=== PATIENT | male | born 1955 | race Caucasian/White ===

== ENCOUNTER 2022-01-08 09:00 | Day surgery (SDC) | payer MEDICARE, SELFPAY ==
[2022-01-08] VITALS (14 sets, daily range): BP systolic 120–144; BP diastolic 68–86; PULSE 45–63; RESP 14–16; TEMP 36.2–36.7; O2SAT 93–100; BMI 35.5
[2022-01-08] MEDS: LACTATED RINGERS 1000 ML 1,000 ML 100 ML IV (09:30)
[2022-01-08] MEDS: CEFAZOLIN 1 GM inj IVP (11:00)
--- NOTE | 2022-01-08 11:27 | SUR.OPER ---
Patient did void prior to transport back to OR. Patient was transfered via strecher to OR4. Patient was assisted to transfer to the OR bed. Patient was then covered with warm blankets x 2.
[2022-01-08] MEDS: BUPIVACAINE 0.5% 30 ML INJECTION (11:50)
--- NOTE | 2022-01-08 12:01 | PM.GSPRC ---
Operative Note Date of procedure: 01/08/22 Type of Procedure: Laparoscopic cholecystectomy Procedure Description: After discussing the risks and benefits of the procedure, the patient signed informed consent.? The operative site was marked and the patient was brought to the operating room and placed on the operating table in supine position.? Care was taken to pad the patient's pressure points.?? The patient was then intubated by anesthesia.?? The operative site was then prepped and draped in the usual sterile fashion.? A time-out was then performed. Entrance to the abdomen was gained via a 5 mm Visiport in the left upper quadrant. The abdomen was insufflated and briefly surveyed for signs of injury. There was none. 11 mm umbilical port was placed as well as 2 working ports along the right costal margin. Patient was then placed in reverse Trendelenburg position with the right side up. The gallbladder fundus was grasped and retracted cephalad. The infundibulum was grasped. A combination of hook cautery and blunt dissection was used to carefully dissect out the cystic duct and artery until they could clearly be seen entering the gallbladder without any intervening structures. The gallbladder was dissected off the cystic plate to achieve the critical view. Once this was achieved the cystic duct and artery were each clipped with 2 clips proximally and 1 clip distally and transected with the scissors. The gallbladder was then taken off of the liver bed. And removed from the abdomen using an Endo-Catch bag. The gallbladder bed was surveyed for hemostasis. A small amount of bile which had spilled was suctioned from the abdomen. The umbilical port fascia was closed with 0 Vicryl suture via a Manolo-Yolanda. The ports were then removed under direct vision. The skin was closed with absorbable subcuticular suture. Instrument sponge and needle counts were correct at the end of the case. Sterile dressings were then applied. ? The patient was then woken and transported to the recovery area in stable condition. ? The patient tolerated the procedure well. Findings: Normal gallbladder. Anesthesia: GETA Surgeon: Berta Carreon MD Estimated blood loss (mL): 5 Condition: stable Disposition: same day
--- NOTE | 2022-01-08 12:09 | W.ANESCHARGE ---
Anesthesia Charges Start Date/Time Anesthesia Start Date: 01/08/22 Anesthesia Start Time: 10:50 Stop Date/Time Anesthesia Stop Date: 01/08/22 Anesthesia Stop Time: 12:11 Summary Emergency: No
--- NOTE | 2022-01-08 12:14 | W.ANESCHARGE ---
Anesthesia Charges Start Date/Time Anesthesia Start Date: 01/08/22 Anesthesia Start Time: 10:50 Stop Date/Time Anesthesia Stop Date: 01/08/22 Anesthesia Stop Time: 12:11 Summary Emergency: No
[2022-01-08] MEDS: fentaNYL 100 MCG/2 ML inj 50 MCG IVP (12:28)
[2022-01-08] MEDS: OXYCODONE 5 MG TABLET PO (13:52)
== END 2022-01-08 14:20 | disposition home or self-care (01) ==
PROVIDERS: PCP Family Medicine; Visit Provider Surgery
PROC: 0FT44ZZ Resection of Gallbladder, Percutaneous Endoscopic Approach (ICD-10-PCS; CPT 47562; principal; 2022-01-08 10:30)
DX: K82.4 Cholesterolosis of gallbladder (principal); R10.11 Right upper quadrant pain
CPT/HCPCS: 47562; 00790; 88304; A9270; J0330; J0690; J1100; J2250; J2405; J2704; J2710; J3010; J3490; J7120

== ENCOUNTER 2023-07-08 14:39 | Emergency (ER) | payer MEDICARE, SELFPAY ==
[2023-07-08 14:46] VITALS: BP 136/73; PULSE 71; RESP 16; TEMP 36.9; O2SAT 96; BMI 33.2
--- NOTE | 2023-07-08 15:15 | ED.GENADULT ---
HPI - General Adult General Date Seen: 07/08/23 Chief complaint: Extremity Pain/Injury, Upper Stated complaint: R arm pain, shallow breathing Time Seen by Provider: 07/08/23 14:45 History of Present Illness HPI narrative: This is a pleasant 67-year-old gentleman accompanied to the ER today by his . They were sent here by the [facility] phone triage nurse. He had called the triage nurse today desiring an appointment in the clinic to checkup because he has been having trouble with a trigger finished finger affecting his right hand 4th digit for the past 3 or 4 months. He also has been having some pain from his right shoulder down to his right elbow for the past 3 or 4 months. 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 Hearing these complaints of shortness of breath and pain radiating down his arm the nurse thought he might be having an acute coronary syndrome, so made him come to the ER. However he said his arm and shoulder pain of actually been present for months and are not really exertional. There more triggered by the wrong movements of his hand and finger and shoulder. He also says that his shortness of breath has been present for many years of his life and has not changed lately. There is no acute change or decompensation in his breathing. No chest pain. No palpitations. His shortness of breath has been present for many years. He said he said he was born with a partially developed lung and also has a history of asthma triggered by environmental allergies and some perfumes. Shortness of breath has not been changing lately or recently or this week or today. It has been a chronic problem. It is not changed lately. No new shortness of breath. No cough. No chest pain. No swelling in his legs. No other new symptoms. Related Data Home Medications Medication Instructions Recorded Confirmed acetaminophen 650 mg 650 mg PO Q12H PRN 01/07/22 01/07/22 tablet,extended release (Arthritis Pain Relief (acetaminophen) ER) aspirin 81 mg capsule 81 mg PO DAILY 01/07/22 07/08/23 atorvastatin 20 mg tablet 20 mg PO QHS 01/07/22 07/08/23 finasteride 5 mg tablet 5 mg PO DAILY 01/07/22 07/08/23 polyethylene glycol 3350 17 17 g PO DAILY 01/07/22 01/07/22 gram/dose oral powder (Miralax) tamsulosin 0.4 mg capsule (Flomax) 0.4 mg PO DAILY 01/07/22 07/08/23 lisinopril 10 mg tablet mg PO 07/08/23 Previous Rx's Medication Instructions Recorded oxycodone 5 mg tablet 5 mg PO Q6H PRN pain #10 tabs 01/08/22 sennosides 8.6 mg capsule (senna) 8.6 mg PO DAILY PRN constipation 01/08/22 #90 caps Allergies Allergy/AdvReac Type Severity Reaction Status Date / Time No Known Drug Allergies Allergy Verified 01/08/22 08:04 [facility] Medical History (Updated 07/08/23 @ 15:33 by Greg Serrato MD) Anxiety ?F41.9 - Anxiety disorder, unspecified (ICD-10) Sensorineural hearing loss ?H90.5 - Unspecified sensorineural hearing loss (ICD-10) Category 5 blindness of both eyes ?H54.0X55 - Blindness right eye category 5, blindness left eye category 5 (ICD-10) Surgical History (Updated 01/07/22 @ 12:13 by Kenna Contreras RN) S/P rotator cuff repair ?Z98.890 - Other specified postprocedural states (ICD-10) Status post ORIF of fracture of ankle ?Z98.890 - Other specified postprocedural states (ICD-10) ?Z87.81 - Personal history of (healed) traumatic fracture (ICD-10) Social History Smoking Status: Never smoker How often do you have a drink containing alcohol: never How often do you have six or more drinks on one occasion: Never AUDIT-C Alcohol total score: 0 Non-prescribed substance use: denies use Exam Narrative: Exam Narrative: Constitutional: Appears well-developed and well-nourished. Alert. Conversant. Non toxic. HENT: Head: Atraumatic. Nose: Nose normal. Mouth/Throat: Oral mucosa is clear and moist. no trismus. Eyes: Conjunctivae normal. EOM normal. does have chronic vision loss from previous injury. No scleral icterus. Neck: Normal range of motion. Neck supple. No tracheal deviation present. Cardiovascular: Normal rate, regular rhythm. No gallop. No friction rub. No murmur heard. Symmetric radial artery pulses Pulmonary/Chest: Effort normal. No stridor. No respiratory distress. No wheezes. No rales. No rhonchi . No tenderness. Musculoskeletal: RUE: Normal range of motion in his shoulder, elbow, wrist, hand and digits. He does not have any active catching of his trigger finger at this time. No tenderness over the flexor tendon of the 4th digit. No obvious swelling or nodularity. Forearm and wrist and elbow are normal. Biceps and triceps are nontender. He is endorsing that when his shoulder pain hurts it flares across the front of his shoulder from the deltoid into the biceps tendon. No focal tenderness there. No erythema of the shoulder. No joint swelling. He has normal active range of motion the shoulder right now. No clear weakness of the subscapularis, supraspinatus, or infraspinatus muscles of her rotator cuff. Normal 5/5 strength in the biceps, triceps, deltoid, wrist extensors, wrist flexors, and intrinsic muscles of the hands. . No tenderness. No deformity LUE: Normal range of motion. No tenderness. No deformity RLE: Normal range of motion. No edema. No tenderness. No deformity LLE: Normal range of motion. No edema. No tenderness. No deformity Lymph: No cervical adenopathy. Neurological: Alert and oriented to person, place, and time. Normal strength. CN II-VII intact. No sensory deficit. GCS eye subscore is 4. GCS verbal subscore is 5. GCS motor subscore is 6. Normal coordination. no focal weakness or numbness to suggest cervical radiculopathy. Skin: Skin is warm and dry. No rash noted. No pallor. Normal capillary refill. Psychiatric: Normal mood. Normal affect. Const: Vital Signs, click to edit/add: Vital Signs - 24 hr 07/08/23 14:46 Temperature 98.5 F Pulse Rate [Pulse Oximeter] 71 Respiratory Rate 16 Blood Pressure [Le ft Upper Arm] 136/73 Pulse Oximetry 96 Oxygen Delivery Me thod Room Air Course Vital Signs Vital signs: Initial Vital Signs Temperature 98.5 F 07/08/23 14:46 Temperature Source Temporal Artery Scan 07/08/23 14:46 Pulse Rate 71 07/08/23 14:46 Respiratory Rate 16 07/08/23 14:46 Blood Pressure 136/73 07/08/23 14:46 Blood Pressure Mean 94 07/08/23 14:46 Blood Pressure Position Supine 07/08/23 14:46 Pulse Oximetry 96 07/08/23 14:46 Oxygen Delivery Method Room Air 07/08/23 14:46 Vital Signs Temperature 98.5 F 07/08/23 14:46 Pulse Rate 71 07/08/23 14:46 Respiratory Rate 16 07/08/23 14:46 Blood Pressure 136/73 07/08/23 14:46 Pulse Oximetry 96 07/08/23 14:46 Oxygen Delivery Method Room Air 07/08/23 14:46 Temperature 98.5 F 07/08/23 14:46 Pulse Rate 71 07/08/23 14:46 Respiratory Rate 16 07/08/23 14:46 Blood Pressure 136/73 07/08/23 14:46 Pulse Oximetry 96 07/08/23 14:46 Oxygen Delivery Method Room Air 07/08/23 14:46 Medical Decision Making MDM Narrative Medical decision making narrative: This is a very pleasant 67-year-old gentleman who is referred to the ER today by his clinic phone triage line. It sounds like when he called the triage nurse he told that he was having pain in his right 4th finger and also pain in his right shoulder. He clearly describe a trigger finger affecting the 4th digit. He also has some chronic shoulder pain and has had previous rotator cuff surgery in that shoulder (done by an orthopedist in [place] years ago). No new falls or injuries to his shoulder. It just hurts when he does certain activities mostly down the front of the shoulder and into the biceps tendon. When he called the phone nurse to get an appointment, they asked about shortness of breath. He does have chronic shortness of breath. It turns out though that it has not changed or any worse than normal today or lately. Presumably, the triage nurse was worried about possible acute coronary syndrome. However based on the chronicity of his trigger finger and shoulder pain and the absence or any exertional component to his shoulder pain or finger pain. He also has shortness of breath which is chronic and related to his asthma. He is not actually short of breath while he is here in the ER today. He is not having any new exacerbating symptoms to suggest asthma exacerbation, pneumonia, CHF, or other acute pulmonary problem. With did check vital signs and blood pressure, pulse, oxygenation were normal. We did do a screening EKG which shows a right bundle branch block but no sign of any acute ischemia. At this point, the patient, his , and I agree that the chronicity of his symptoms really is not suggestive for any heart problem or CHF or acute coronary syndrome. At this point further workup with troponin testing or stress testing hospitalization is not indicated. He will follow-up outpatient in the orthopedic clinic for his shoulder pain and his trigger finger. He will return to the ER if he does develop any new shortness of breath or any other chest pain or symptoms that might be concerning for heart or lung problems, or if he has any other concerns. ECG Data Attestation: I personally reviewed and interpreted this ECG as follows: Interpretation: Normal sinus rhythm Rate: 68 WA: 152 QRS axis: Right bundle-branch block pattern. Normal axis ST segment/T wave: No ST segment elevation or depression QTc: 459 Discharge Plan Discharge Clinical Impression: Trigger finger, Pain in right shoulder Patient Disposition: Home, Self-Care Condition: Stable Instructions: Trigger Finger (ED), Shoulder Pain (ED) Additional Instructions: Please call the [facility] [phone] to arrange an ER follow-up appointment for your shoulder pain and your trigger finger on your right hand. As we discussed, If you do develop any worsening shortness of breath, or if you have any other concerning symptoms such as chest pain, palpitations, dizzy spells or lightheadedness or fainting spells, come back to the ER right away. Please follow-up with your regular doctor for a checkup in the [facility] within the next 1-2 weeks. Prescriptions: No Action acetaminophen [Arthritis Pain Relief (acetam)] 650 mg tablet extended release 650 mg PO Q12H PRN aspirin 81 mg capsule 81 mg PO DAILY atorvastatin 20 mg tablet 20 mg PO QHS finasteride 5 mg tablet 5 mg PO DAILY polyethylene glycol 3350 [Miralax] 17 gram/dose powder 17 g PO DAILY tamsulosin [Flomax] 0.4 mg capsule 0.4 mg PO DAILY oxycodone 5 mg tablet 5 mg PO Q6H PRN (Reason: pain) Qty: 10 0RF senna 8.6 mg capsule 8.6 mg PO DAILY PRN (Reason: constipation) Qty: 90 0RF lisinopril 10 mg tablet PO Follow Up/Referrals: Russ Lane MD [Primary Care Provider] - Stand Alone Forms: [employer] Info Instructions
== END 2023-07-08 15:43 | disposition home or self-care (01) ==
PROVIDERS: Emergency Provider Emergency Medicine; PCP Family Medicine
DX: M25.511 Pain in right shoulder (principal); M65.341 Trigger finger, right ring finger
CPT/HCPCS: 93005; 99282; 99283; 99284

== ENCOUNTER 2023-07-18 06:24 | Day surgery (SDC) | payer MEDICARE, SELFPAY ==
[2023-07-18 06:51] VITALS: BP 123/76; PULSE 65; RESP 16; TEMP 36.6; O2SAT 97; BMI 33.5
--- NOTE | 2023-07-18 07:26 | W.PM.H&PU ---
History & Physical Update History & Physical Update H&P Reviewed and patient assessed: No changes noted
--- NOTE | 2023-07-18 07:28 | P.ORPRC_ITS ---
Procedure Note Date of procedure: 07/18/23 Procedure: PREOPERATIVE DIAGNOSIS: 1. Right right finger trigger digit POSTOPERATIVE DIAGNOSIS: 1. Right right finger trigger digit PROCEDURE: 1. Right ring finger trigger (A1 kate) release SURGEON: Maninder Wang MD. OIL EXPLORATION ENGINEER: Ashley Krueger P.A.-C. An technical services assistant was critical for this case to aid in patient positioning, tissue retraction, limb manipulation/positioning, and closure. ANESTHESIA: Local anesthetic IMPLANTS: None TOURNIQUET: 6 min at 250 mmHg COMPLICATIONS: None INDICATIONS: The patient is a pleasant 67-year-old male who has history of right ring finger pain and triggering. Symptoms did not improve with conservative management. Patient subsequently elected to proceed with surgical intervention consisting of right ring finger A1 kate release. Prior to surgery risks and benefits were discussed with patient all questions were answered informed consent was obtained. DESCRIPTION OF PROCEDURE: Patient was seen preoperatively and operative site was marked. Patient was then brought to the operating room placed in supine position on the OR table. A tourniquet was placed on the patient's right arm and right upper extremity was prepped and draped in usual sterile fashion. A surgical time-out was performed confirming patient name, procedure, and location. The subcutaneous tissues overlying the right ring finger A1 kate were injected with combination of 1% lidocaine and 0.25% bupivacaine. Operative extremity was then elevated and exsanguinated with an Esmarch, and tourniquet was inflated to 200 mmHg. A skin incision measuring approximately 1 cm was made longitudinally over the A1 kate of the right ring finger. Blunt dissection was used to dissect through subcutaneous tissues. The underlying flexor tendons and A1 kate were identified and retractors were used to protect the neurovascular structures. The A1 kate was then released using a tenotomy scissor. After complete release of the A1 kate, the patient was asked to flex and extend their fingers, and no active triggering was noted. Tourniquet was then released and hemostasis was achieved with bipolar electrocautery. Total tourniquet time was 6 minutes. Wound was the irrigated with normal saline. Skin incision was closed with 4-0 nylon horizontal mattress sutures, and a sterile dressing was applied. Patient was then transferred to the recovery room in stable condition. POSTOPERATIVE PLAN: 1. Patient will be discharged to home day of surgery. 2. They were given instructions for wound care and finger range of motion exercises. 3. Return to the clinic for follow-up evaluation in 10-14 days for wound check and suture removal.
[2023-07-18] MEDS: LIDOCAINE 1% MDV 20 ML INJECTION (07:35)
[2023-07-18] MEDS: BUPIVACAINE 0.25% 30 ML INJECTION (07:35)
[2023-07-18 07:40] VITALS: BP 148/79; PULSE 62; RESP 16; O2SAT 99
[2023-07-18 07:45] VITALS: BP 148/76; PULSE 68; RESP 16; O2SAT 100
[2023-07-18 07:50] VITALS: BP 145/83; PULSE 64; RESP 18; O2SAT 98
[2023-07-18 07:55] VITALS: BP 143/80; PULSE 64; RESP 16; O2SAT 100
[2023-07-18 08:04] VITALS: BP 145/83; PULSE 58; RESP 16; TEMP 36.3; O2SAT 100
== END 2023-07-18 08:40 | disposition home or self-care (01) ==
LOC: OR 06:25
PROVIDERS: PCP Family Medicine; Visit Provider Orthopaedic Surgery
PROC: (CPT 26055; principal; 2023-07-18 07:30)
DX: M65.341 Trigger finger, right ring finger (principal)
CPT/HCPCS: 26055; J0665

== ENCOUNTER 2023-07-18 10:10 | Outpatient (CLI) | payer MEDICARE, SELFPAY ==
--- NOTE | 2023-07-18 10:15 | FL_ITS ---
Patient: MAY SUH Facility:?[facility] Patient ID:?[id number] Site Patient ID:?[id number]. Site :?[id number] Study:?XRay-Shoulder Right RT SHOULDER ARTHROGRAM W/OMNIPAQUE-07/18/2023 11:35:14 AM Ordering Physician:DUARTE Final Report: PROCEDURE PERFORMED: FLUOROSCOPIC GUIDED right shoulder CT arthrogram FINDINGS (DESCRIPTION OF EACH PROCEDURE): Informed consent was obtained prior to the procedure. Fluoroscopic localization of the right shoulder CT arthrogram is performed. Skin was prepped and draped in a sterile fashion. 1% Lidocaine was used for local anesthesia. 22-gauge needle was used to enter joint capsule. Entry into the capsule of the right shoulder joint was confirmed with Omnipaque (1 cubic centimeters instill and confirmed via fluoroscopy). A total of 12 mL (ratio of lidocaine 5 mLs : Sterile saline 5 mLs : 10 mLs of Omnipaque 240) were then injected into the right shoulder joint. The needle was then removed. The patient tolerated the procedure well with no immediate complications. POST-PROCEDURE DIAGNOSIS: FLUOROSCOPIC GUIDED right shoulder CT arthrogram MEDICATIONS GIVEN: Lidocaine for local anesthesia. SPECIMEN(S): none COMPLICATIONS: no complications noted DRAINS: None ESTIMATED BLOOD LOSS: Less than 10 cc. PHYSICIAN(S) AND ASSISTANTS (if any): RENE Carroll Additional Comments: Patient tolerated the procedure well. No complications. Please call with questions. RENE Carroll [place] Protocol A. Pre-procedure verification complete yes1-relevant information / documentation available, reviewed and properly matched to the patient; 2-consent accurate and complete, 3-equipment and supplies available B. Site marking complete YesSite marked if not in continuous attendance with patient C. TIME OUT completed yesTime Out was conducted just prior to starting procedure to verify the eight required elements: 1-patient identity, 2-consent accurate and complete, 3-position, 4-correct side/site marked (if applicable), 5- procedure, 6-relevant images / results properly labeled and displayed (if applicable), 7-antibiotics / irrigation fluids (if applicable), 8-safety precautions. Dictated by Jet Tenorio MD @ 07/18/2023 11:51:23 AM Signed by:?Jet Tenorio MD @07/18/2023 11:51:23 AM (Electronic Signature)
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
== END 2023-07-18 10:11 | disposition home or self-care (01) ==
LOC: RAD 10:11
PROVIDERS: PCP Family Medicine; Visit Provider Physician Assistant Surgical
DX: M25.511 Pain in right shoulder (principal); M75.101 Unspecified rotator cuff tear or rupture of right shoulder, not specified as traumatic; M89.9 Disorder of bone, unspecified
CPT/HCPCS: 23350; 73201; 77002; Q9966; Q9967

== ENCOUNTER 2023-09-26 15:30 | Outpatient (RCR) | payer MEDICARE, SELFPAY ==
--- NOTE | 2023-08-22 15:21 | PT.OPEX ---
PT [facility] PT [facility] Eval Start: 08/22/23 10:25 Freq: Status: Active Protocol: Document 08/22/23 10:28 VERONICA (Rec: 08/22/23 15:19 VERONICA [id number]) E-signed By Daniel Nieves DPT Physical Therapy Outpatient Evaluation Insurance Information Recert Due Date 11/20/23 Insurance Name Medicare B Medical Diagnosis R shoulder Rotator cuff insufficiency Treating Diagnosis R shoulder azul R shoulder stiffness muscle weakness Referring MD akshat manning Subjective Subjective Peter comes into clinic today with his due to R shoulder pain. He recently had a follow up with the orthopedic team where they found via MRI he was dealing with a partial thickness R supraspinatus tear. Feels like this has been going on the past several months with increasing in amount. Found sleeping has been impacted to some degrees. Most of his pain is reaching overhead or away from his body. 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 Pain Comments 10/17 Current Work Status Retired Precautions Treatment Precautions/Contraindications MRI findings high-grade partial-thickness articular surface tear posterior margin supraspinatus; previous suture anchors intact. hearing loss and blindness both eyes hx of rotator cuff tear/repair 2014 trigger finger release 2023 Objective Other/Pertinent Objective SHOULDER AROM WNL on L can reach same range as left shoulder but with pain Flexion: R 130 before drifting in abduction and pain Abduction: R 125 before pain Internal Rotation: R L3-4 L T8 -9 External Rotation: R 57 degrees NECK/SHOULDER MMT: WNL on L Shoulder flexion: R 4/5 Shoulder abduction: R4- /5 Shoulder External Rotation: R 4-/5 Shoulder Internal Rotation: R 4+/5 Elbow flexion: R 4/5 Elbow extension R 5/5 JOINT MOBILITY/PALPATION increase long head biceps and supraspinatus tendon tenderness Assessment Assessment/Impression Pt is a 67 yr old male who presents with concerns of Rt shoulder pain secondary to partial thickness RC tear. Patient also has notable objective findings including limited ROM, impaired shoulder stability, decreased strength also likely contributing to the problem. Patient is a good candidate for skilled therapy to target deficits described above. Skilled PT intervention is necessary for use of therapeutic exercise manual therapy, neuromuscular re- education, , and therapeutic activity. Functional impairments include difficulty with: lifting reaching carrying lifitng . See appropriate sections of PT eval for complete list of goals and POC. D/C plan and criteria is for pt to achieve the goals as listed below or until max rehab potential is met. Pt was agreeable with plan of care and goals established. Plan of Care Rehabilitation Potential Good Physical Therapy Goals GOALS Pt will be independent with HEP within 10-12 weeks to allow for independence and continued improvement past formal therapy Pt will be able to demonstrate / report ability to lift #5-10 from counter height to overhead without pain within 10-12 weeks, for household and work activity. 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 Coordination/Communication With Referral Source Treatment Plan/Direct Interventions Joint Mobilization,Manual Therapy,Neuromuscular Re-ed, Self-Care/Home Management, Therapeutic Activities, Therapeutic Exercises Frequency/Duration 1-2 visits a week for 6-12 weeks Patient Will Be Discharged From Therapy Completion of LTG(s), Independent w/HEP, Independently Progressing Evaluation Billing Untimed Code Treatment Minutes 20 Complexity Low Certification Information Initial Certification Date 08/22/23 Ending Certification Date 11/20/23 Provider Signature Required Yes Provider Signature Shows Agreement With POC & Medical Necessity Physician NPI Number Write NPI# Here Physician Comment/Change : Physician Signature & Date Requested Please Sign/Date Here
== END 2023-11-25 15:25 | disposition home or self-care (01) ==
PROVIDERS: PCP Family Medicine; Visit Provider Physician Assistant Surgical
DX: M25.311 Other instability, right shoulder (principal); Z51.89 Encounter for other specified aftercare
CPT/HCPCS: 97110; 97140; 97161